=== PATIENT | female | born 1945 | race African-American/Black ===

== ENCOUNTER 2024-01-19 10:54 | Outpatient (REF) | payer MEDICARE, SELFPAY | END 2024-01-19 10:55 | disposition home or self-care (01) | LOC: HO.LAB 10:54 | PROVIDERS: PCP Psychiatry & Neurology Neurology; Visit Provider Psychiatry & Neurology Neurology | DX: Z13.89 Encounter for screening for other disorder (principal) ==

== ENCOUNTER 2024-01-22 08:17 | Outpatient (REF) | payer MEDICARE, SELFPAY ==
[2024-01-22 10:01] LABS: Anion Gap 13 (12-20); Blood Urea Nitrogen 17 mg/dL (9-16); C Reactive Protein 0.17 mg/dL (< or = 0.50); Calcium 9.8 mg/dL (8.4-10.2); Carbon Dioxide 27 mmol/L (22-29); Chloride 106 mmol/L (96-108); Estimated Glomerular Filt Rate > 60; Glucose Fasting 100 mg/dL (60-99); Potassium 4.5 mmol/L (3.3-5.1); Sodium 141 mmol/L (135-145)
[2024-01-22 10:07] LABS: Erythrocyte Sedimentation Rate 16 MM/HR (0-20)
[2024-01-23 22:48] LABS: Lyme Abs Screen <0.90 index
[2024-01-27 17:18] LABS: IgA 70 mg/dL (70-320); IgG 2038 mg/dL (600-1540); IgM 48 mg/dL (50-300)
== END 2024-01-22 08:18 | disposition home or self-care (01) ==
LOC: HO.LAB 08:17
PROVIDERS: Visit Provider Psychiatry & Neurology Neurology
DX: G44.229 Chronic tension-type headache, not intractable (principal); G62.9 Polyneuropathy, unspecified
CPT/HCPCS: 36415; 80048; 82784; 85652; 86140; 86334; 86617; 86618